=== PATIENT | female | born 1945 | race African-American/Black ===

== ENCOUNTER → 2021-05-30 | Outpatient (CLI) | payer OTHER ==
--- NOTE | 2021-05-30 15:25 | KCIC ---
EXAM: Lumbar spine, 5 views. HISTORY: Pain. COMPARISON: None. FINDINGS: 5 views of the lumbar spine are obtained. There is mild lumbar hyperlordosis. There is no s ignificant listhesis. There is degenerative endplate remodeling and facet arthropathy predominantly a t L4-L5 and L5-S1. There is a round calcification overlying the right upper quadrant, possibly due to a gallstone. The imaging appearance does not favor a renal stone. IMPRESSION: Multilevel degenerative change, primarily at the lower lumbar levels. Electronically signed by: Lisa Briggs MD (05/30/2021 3:23 PM) [id number]
== END ==
LOC: KCIC 14:14
PROVIDERS: ATTEND Family Medicine
DX: M47.817 Spondylosis without myelopathy or radiculopathy, lumbosacral region (principal)
CPT/HCPCS: 72110